=== PATIENT | female | born 1975 | race Hispanic/Latino ===

== ENCOUNTER 2022-03-15 21:10 | Emergency (ER) | payer BC ==
[~2022-03-15] VITALS: Ht 160 cm; Wt 142.9 kg
[~2022-03-15 21:10] MED LIST: LEVOTHYROXINE50 MCG PO; PANTOPRAZOLE SO40 MG PO; Z.0.CIPRO500 MG; Z.0.TORADOL10 MG; prestique
[2022-03-15] MEDS ORDERED: ONDANSETRON HCL INJ 2MG/ML 2ML 2 MG/ML VIAL IV STA (21:36)
[2022-03-15] MEDS ORDERED: Morphine 4mg INJECTION 4 MG/ML INJ IV ONE (21:45)
[2022-03-15 21:57] LABS: BASOPHILS % 0.3 % (0.0-1.0); EOSINOPHILS # (AUTO) 0.3 (0.0-0.4); EOSINOPHILS % 3.6 % (0.0-6.0); HEMATOCRIT 40.4 % (34.2-44.1); HEMOGLOBIN 13.5 g/dL (12.0-16.0); LYMPHOCYTES # (AUTO) 2.7 (1.0-3.2); LYMPHOCYTES % 31.4 % (18.0-39.1); MEAN CORPUSCULAR HEMOGLOBIN 30.7 pg (28-32); MEAN CORPUSCULAR HGB CONC 33.4 g/dL (31-35); MEAN CORPUSCULAR VOLUME 91.8 fL (81-99); MONOCYTES # (AUTO) 0.5 (0.2-0.8); MONOCYTES % 5.7 % (4.4-11.3); NEUTROPHILS # (AUTO) 5.1 (2.1-6.9); NEUTROPHILS % 58.8 % (38.7-80.0); PLATELET COUNT 355 x10e3/uL (140-360); RED CELL DISTRIBUTION WIDTH 12.8 % (11.7-14.4)
[2022-03-15 22:20] LABS: ALBUMIN 3.5 g/dL (3.5-5.0); ALBUMIN/GLOBULIN RATIO 0.9 (0.8-2.0); ANION GAP 15.9 mmol/L (8-16); CALCIUM 9.4 mg/dL (8.4-10.2); CREATININE, SERUM 0.73 mg/dL (0.57-1.11); POTASSIUM 3.9 mmol/L (3.5-5.1)
[2022-03-15 22:34] LABS: CLARITY,URINE SL CLOUDY (CLEAR); COLOR,URINE YELLOW (YELLOW); KETONES,URINE NEGATIVE (NEGATIVE); LEUKOCYTE ESTERASE ,URINE NEGATIVE (NEGATIVE); NITRITE,URINE NEGATIVE (NEGATIVE); PROTEIN,URINE DIPSTICK 1+ (NEGATIVE); URINE UROBILINOGEN 0.2 mg/dL (0.2 - 1)
[2022-03-15 22:39] LABS: BACTERIA,URINE FEW /HPF; EPITHELIAL CELLS,URINE MANY /LPF; RBC,URINE 0-5 /HPF (0-5); YEAST,URINE RARE
[2022-03-15] MEDS ORDERED: IOPAMIDOL 370 MG/ML 100 ML INFUS..BTL INJ ONE (22:48)
[2022-03-15] MEDS ORDERED: ULTRAM 50MG50 MG PO (23:47)
[2022-03-15] MEDS ORDERED: ONDANSETRON ODT4 MG PO (23:47)
[2022-03-16 00:25] VITALS: BP 130/65
[2022-03-17] MEDS ORDERED: IOPAMIDOL 370 MG/ML 100 ML INFUS..BTL INJ ONE (05:32)
== END 2022-03-16 00:01 | disposition home or self-care (01) ==
LOC: ER 21:20
DX: R10.10 Upper abdominal pain, unspecified (principal); K43.9 Ventral hernia without obstruction or gangrene; E11.65 Type 2 diabetes mellitus with hyperglycemia; R11.0 Nausea; E03.9 Hypothyroidism, unspecified; F32.A Depression, unspecified
CPT/HCPCS: 36415; 74177; 80053; 81001; 83690; 85025; 99284; J2270; J2405; Q9967

== ENCOUNTER → 2022-04-12 | Outpatient (CLI) | payer BC ==
[~2022-04-12] MED LIST changes: +DIATRIZOATE MEGL/DIATRIZOA SOD 120 ML BTL PO ONE; +DIATRIZOATE MEGL/DIATRIZOA SOD 30 ML BTL PO ONE; +ONDANSETRON ODT4 MG PO; +ULTRAM 50MG50 MG PO
== END ==
LOC: DX 11:13
PROVIDERS: ATTEND Specialist
DX: K63.89 Other specified diseases of intestine (principal)
CPT/HCPCS: 74270; Q9963 ×2

== ENCOUNTER 2022-05-22 07:05 | Inpatient (IN) | payer BC ==
[2022-05-20 10:22] LABS: BASOPHILS % 0.4 % (0.0-1.0); EOSINOPHILS # (AUTO) 0.2 (0.0-0.4); HEMATOCRIT 41.9 % (34.2-44.1); LYMPHOCYTES # (AUTO) 2.1 (1.0-3.2); LYMPHOCYTES % 39.3 % (18.0-39.1); MEAN CORPUSCULAR HEMOGLOBIN 30.3 pg (28-32); MEAN CORPUSCULAR HGB CONC 33.4 g/dL (31-35); MEAN CORPUSCULAR VOLUME 90.7 fL (81-99); MONOCYTES # (AUTO) 0.3 (0.2-0.8); MONOCYTES % 6.2 % (4.4-11.3); NEUTROPHILS # (AUTO) 2.7 (2.1-6.9); NEUTROPHILS % 50.9 % (38.7-80.0); PLATELET COUNT 334 x10e3/uL (140-360); RED BLOOD COUNT 4.62 x10e6/uL (3.6-5.1); RED CELL DISTRIBUTION WIDTH 13.2 % (11.7-14.4)
[2022-05-20 10:31] LABS: ALBUMIN 3.9 g/dL (3.5-5.0); ANION GAP 15.2 mmol/L (8-16); CREATININE, SERUM 0.64 mg/dL (0.57-1.11); POTASSIUM 4.2 mmol/L (3.5-5.1)
[2022-05-22] VITALS (12 sets, daily range): BP systolic 111–151; BP diastolic 68–87
[~2022-05-22] VITALS: Ht 160 cm; Wt 142.9 kg
[~2022-05-22 07:05] MED LIST changes: -DIATRIZOATE MEGL/DIATRIZOA SOD 120 ML BTL PO ONE; -DIATRIZOATE MEGL/DIATRIZOA SOD 30 ML BTL PO ONE; +GLIPIZIDE5 MG PO; +METFORMIN HCL1000 MG PO
[2022-05-22] MEDS ORDERED: ONDANSETRON HCL INJ 2MG/ML 2ML 2 MG/ML VIAL ONE ×2 (08:22→12:19)
[2022-05-22] MEDS ORDERED: MINERAL OIL STERILE 10ML VIAL ONE (08:29)
[2022-05-22] MEDS ORDERED: SUGAMMADEX SODIUM 200 MG/2 ML VIAL IV ONE (08:35)
[2022-05-22] MEDS ORDERED: HYDROMORPHONE 1MG/1ML INJ ONE (08:35)
[2022-05-22] MEDS ORDERED: ACETAMINOPHEN 1000 MG/100 ML 100 ML IV ONE (08:35)
[2022-05-22] MEDS ORDERED: ROPIVACAINE 246.25 MG, EPINEPHRINE HCL 1:1000 1ML 0.5 MG, CLONIDINE HCL 0.08 MG, KETORO... IV ONE ×5 (09:15)
[2022-05-22] MEDS ORDERED: ROPIVACAINE 246.25 MG, EPINEPHRINE HCL 1:1000 1ML 0.5 MG, CLONIDINE HCL 0.08 MG, KETORO... INJ ONE ×5 (09:30)
[2022-05-22] MEDS ORDERED: ALBUMIN 5% 250ML 250 ML IV ONE (12:00)
[2022-05-22] MEDS ORDERED: SEVOFLURANE INHAL SOLN 250 ML PEN BTL ONE (12:19)
[2022-05-22] MEDS ORDERED: METOPROLOL TARTRATE INJ 1 MG/ML VIAL ONE (12:19)
[2022-05-22] MEDS ORDERED: LIDOCAINE HCL 2% LOCAL INJ 5 ML SDV VIAL INJ ONE (12:19)
[2022-05-22] MEDS ORDERED: CEFTRIAXONE 1 GM VIAL ONE (12:19)
[2022-05-22] MEDS ORDERED: PHENYLEPHRINE HCL 1% 10 MG/ML VIAL ONE (12:19)
[2022-05-22] MEDS ORDERED: ROCURONIUM BROMIDE 10 MG/ML 5ML VIAL IV ONE (12:19)
[2022-05-22] MEDS ORDERED: DEXAMETHASONE SOD PHOS INJ 4 MG/ML SDV ONE (12:19)
[2022-05-22] MEDS ORDERED: POVIDONE IODINE 0.05% 0.05 % ML PO ONE (12:19)
[2022-05-22] MEDS ORDERED: PROPOFOL IV EMULSION 10 MG/ML 20 ML VIAL ONE (12:19)
[2022-05-22] MEDS ORDERED: METOCLOPRAMIDE HCL 10 MG/2ML VIAL ONE (12:19)
[2022-05-22] MEDS ORDERED: FENTANYL CITRATE/PF 100MCG/2 ML INJ ONE (13:07)
[2022-05-22] MEDS ORDERED: MIDAZOLAM HCL 2 MG/2 ML VIAL ONE (13:07)
[2022-05-22] MEDS ORDERED: ACETAMINOPHEN 1000 MG/100 ML IV PRN (14:15)
[2022-05-22] MEDS ORDERED: NALOXONE HCL INJ 0.4 MG/ML AMP IV PRN (14:15)
[2022-05-22] MEDS: SODIUM CHLORIDE 0.9% 250ML IRRIG IR SCH ×3 (14:15→22:26)
[2022-05-22] MEDS: HYDROMORPHONE 0.2MG/ML-SOD CHL 30ML PCA SYRINGE IV PRN (14:40)
[2022-05-22] MEDS ORDERED: INSULIN REGULAR, HUMAN 100 UNIT/1 ML ONE (15:09)
[2022-05-22] MEDS ORDERED: PROMETHAZINE HCL (IM) 25 MG/ML VIAL IM ONE (15:17)
[2022-05-22] MEDS: METRONIDAZOLE 500MG/NS 100ML 100 ML IV SCH ×2 (16:09→22:00)
[2022-05-22] MEDS: SODIUM CHLORIDE 0.9% 1000ML 1,000 ML IV SCH (16:09)
[2022-05-22] MEDS: INSULIN REGULAR, HUMAN 100 UNIT/1 ML SQ SCH (18:11)
[2022-05-22] MEDS ORDERED: Morphine 2mg Syringe 2 MG/ML SYR IV ONE (20:00)
[2022-05-22] MEDS ORDERED: Morphine 2mg Syringe 2 MG/ML SYR IM ONE (20:00)
[2022-05-23] VITALS (18 sets, daily range): BP systolic 99–130; BP diastolic 57–88
[2022-05-23] MEDS: INSULIN REGULAR, HUMAN 100 UNIT/1 ML SQ SCH ×4 (00:41→17:52)
[2022-05-23] MEDS: SODIUM CHLORIDE 0.9% 1000ML 1,000 ML IV SCH ×3 (00:46→10:55)
[2022-05-23] MEDS: SODIUM CHLORIDE 0.9% 250ML IRRIG IR SCH ×6 (03:39→22:14)
[2022-05-23] MEDS: METRONIDAZOLE 500MG/NS 100ML 100 ML IV SCH ×4 (03:52→21:20)
[2022-05-23] MEDS: HYDROMORPHONE 0.2MG/ML-SOD CHL 30ML PCA SYRINGE IV PRN ×2 (06:44→17:29)
[2022-05-23] MEDS: ONDANSETRON HCL INJ 2MG/ML 2ML 2 MG/ML VIAL IV PRN ×3 (07:44→20:13)
[2022-05-23 09:51] LABS: BASOPHILS % 0.2 % (0.0-1.0); HEMATOCRIT 29.6 % (34.2-44.1); HEMOGLOBIN 9.1 g/dL (12.0-16.0); LYMPHOCYTES # (AUTO) 1.1 (1.0-3.2); LYMPHOCYTES % 9.5 % (18.0-39.1); MEAN CORPUSCULAR HEMOGLOBIN 29.9 pg (28-32); MEAN CORPUSCULAR HGB CONC 30.7 g/dL (31-35); MEAN CORPUSCULAR VOLUME 97.4 fL (81-99); MONOCYTES # (AUTO) 0.7 (0.2-0.8); MONOCYTES % 6.3 % (4.4-11.3); NEUTROPHILS # (AUTO) 9.6 (2.1-6.9); NEUTROPHILS % 83.6 % (38.7-80.0); PLATELET COUNT 259 x10e3/uL (140-360); RED BLOOD COUNT 3.04 x10e6/uL (3.6-5.1); RED CELL DISTRIBUTION WIDTH 13.3 % (11.7-14.4)
[2022-05-23 10:16] LABS: ALBUMIN 2.5 g/dL (3.5-5.0); ANION GAP 11.4 mmol/L (8-16); CREATININE, SERUM 0.7 mg/dL (0.57-1.11); POTASSIUM 3.4 mmol/L (3.5-5.1)
[2022-05-23 10:23] LABS: CALCIUM 6.1 mg/dL (8.4-10.2)
[2022-05-23 11:16] LABS: BAND NEUTROPHILS % (MANUAL) 8 %; LYMPHOCYTES % (MANUAL) 8 % (19-48); MONOCYTES % (MANUAL) 4 % (3.4-9.0); NEUTROPHILS % (MANUAL) 79 % (40-74); PLATELET ESTIMATE ADEQUATE; PLATELET MORPHOLOGY COMMENT NORMAL; RBC MORPHOLOGY COMMENT NORMAL
[2022-05-23] MEDS: KCL 20MEQ/.9 SOD CHL 1,000 ML IV SCH ×2 (12:09→18:17)
[2022-05-23] MEDS: ENOXAPARIN SOD INJ 60 MG/0.6 ML SYR SC SCH (16:35)
[2022-05-24] VITALS (19 sets, daily range): BP systolic 99–137; BP diastolic 62–90
[2022-05-24] MEDS: KCL 20MEQ/.9 SOD CHL 1,000 ML IV SCH ×3 (00:20→16:21)
[2022-05-24] MEDS: SODIUM CHLORIDE 0.9% 250ML IRRIG IR SCH ×2 (00:20→05:12)
[2022-05-24] MEDS: HYDROMORPHONE 0.2MG/ML-SOD CHL 30ML PCA SYRINGE IV PRN ×2 (03:13→14:01)
[2022-05-24] MEDS: METRONIDAZOLE 500MG/NS 100ML 100 ML IV SCH ×4 (03:21→23:16)
[2022-05-24] MEDS: INSULIN REGULAR, HUMAN 100 UNIT/1 ML SQ SCH ×5 (05:12→23:23)
[2022-05-24 09:10] LABS: BASOPHILS % 0.1 % (0.0-1.0); HEMATOCRIT 30.3 % (34.2-44.1); LYMPHOCYTES # (AUTO) 1.4 (1.0-3.2); LYMPHOCYTES % 11.9 % (18.0-39.1); MEAN CORPUSCULAR HEMOGLOBIN 29.8 pg (28-32); MEAN CORPUSCULAR HGB CONC 29.7 g/dL (31-35); MEAN CORPUSCULAR VOLUME 100.3 fL (81-99); MONOCYTES # (AUTO) 0.7 (0.2-0.8); MONOCYTES % 6.5 % (4.4-11.3); NEUTROPHILS # (AUTO) 9.1 (2.1-6.9); PLATELET COUNT 283 x10e3/uL (140-360); RED BLOOD COUNT 3.02 x10e6/uL (3.6-5.1); RED CELL DISTRIBUTION WIDTH 14.1 % (11.7-14.4)
[2022-05-24 09:27] LABS: ALBUMIN 2.4 g/dL (3.5-5.0); ALBUMIN/GLOBULIN RATIO 0.6 (0.8-2.0); ANION GAP 11.3 mmol/L (8-16); CALCIUM 7.1 mg/dL (8.4-10.2); CREATININE, SERUM 0.73 mg/dL (0.57-1.11); POTASSIUM 4.3 mmol/L (3.5-5.1)
[2022-05-24] MEDS ORDERED: HYDROMORPHONE 0.2MG/ML-SOD CHL 30ML PCA SYRINGE IV PRN (16:15)
[2022-05-24] MEDS: ENOXAPARIN SOD INJ 60 MG/0.6 ML SYR SC SCH (17:10)
[2022-05-25] VITALS (8 sets, daily range): BP systolic 101–133; BP diastolic 66–82
[2022-05-25] MEDS: KCL 20MEQ/.9 SOD CHL 1,000 ML IV SCH ×3 (00:35→11:41)
[2022-05-25] MEDS: METRONIDAZOLE 500MG/NS 100ML 100 ML IV SCH ×4 (04:57→21:26)
[2022-05-25] MEDS: INSULIN REGULAR, HUMAN 100 UNIT/1 ML SQ SCH ×4 (06:00→23:59)
[2022-05-25 09:58] LABS: BASOPHILS % 0.2 % (0.0-1.0); HEMATOCRIT 27.3 % (34.2-44.1); HEMOGLOBIN 8.1 g/dL (12.0-16.0); LYMPHOCYTES # (AUTO) 1.4 (1.0-3.2); LYMPHOCYTES % 13.8 % (18.0-39.1); MEAN CORPUSCULAR HEMOGLOBIN 30.2 pg (28-32); MEAN CORPUSCULAR HGB CONC 29.7 g/dL (31-35); MEAN CORPUSCULAR VOLUME 101.9 fL (81-99); MONOCYTES # (AUTO) 0.6 (0.2-0.8); MONOCYTES % 6.2 % (4.4-11.3); NEUTROPHILS # (AUTO) 7.8 (2.1-6.9); NEUTROPHILS % 77.7 % (38.7-80.0); PLATELET COUNT 296 x10e3/uL (140-360); RED BLOOD COUNT 2.68 x10e6/uL (3.6-5.1); RED CELL DISTRIBUTION WIDTH 14.1 % (11.7-14.4)
[2022-05-25 10:22] LABS: ALBUMIN 2.3 g/dL (3.5-5.0); ALBUMIN/GLOBULIN RATIO 0.6 (0.8-2.0); ANION GAP 13.9 mmol/L (8-16); CALCIUM 7.2 mg/dL (8.4-10.2); CREATININE, SERUM 0.68 mg/dL (0.57-1.11); POTASSIUM 3.9 mmol/L (3.5-5.1)
[2022-05-25] MEDS: ENOXAPARIN SOD INJ 60 MG/0.6 ML SYR SC SCH (16:56)
[2022-05-25] MEDS: SODIUM CHLORIDE 0.9% 250ML IRRIG IR SCH ×2 (19:41→23:59)
[2022-05-25] MEDS: IPRATROPIUM BROMIDE 0.02% 2.5 ML NEB NEB SCH (20:15)
[2022-05-26] VITALS (7 sets, daily range): BP systolic 123–144; BP diastolic 62–80
[2022-05-26] MEDS: IPRATROPIUM BROMIDE 0.02% 2.5 ML NEB NEB SCH ×4 (02:15→19:00)
[2022-05-26] MEDS: KCL 20MEQ/.9 SOD CHL 1,000 ML IV SCH (03:22)
[2022-05-26] MEDS: METRONIDAZOLE 500MG/NS 100ML 100 ML IV SCH ×4 (03:47→21:24)
[2022-05-26] MEDS: INSULIN REGULAR, HUMAN 100 UNIT/1 ML SQ SCH ×3 (05:00→17:10)
[2022-05-26] MEDS: ONDANSETRON HCL INJ 2MG/ML 2ML 2 MG/ML VIAL IV PRN ×2 (15:06→21:24)
[2022-05-26] MEDS ORDERED: HYDROCODONE/APAP 7.5MG-325MG 1 EA TAB PO PRN (16:15)
[2022-05-26] MEDS: ENOXAPARIN SOD INJ 60 MG/0.6 ML SYR SC SCH (17:30)
[2022-05-26] MEDS: HYDROMORPHONE 1MG/1ML INJ IV PRN (21:27)
[2022-05-27] VITALS (8 sets, daily range): BP systolic 112–143; BP diastolic 69–89
[2022-05-27] MEDS: IPRATROPIUM BROMIDE 0.02% 2.5 ML NEB NEB SCH ×4 (01:00→19:00)
[2022-05-27] MEDS: HYDROMORPHONE 1MG/1ML INJ IV PRN ×6 (01:52→21:04)
[2022-05-27] MEDS: ONDANSETRON HCL INJ 2MG/ML 2ML 2 MG/ML VIAL IV PRN ×3 (02:50→17:19)
[2022-05-27] MEDS: KCL 20MEQ/.9 SOD CHL 1,000 ML IV SCH ×2 (04:09→16:55)
[2022-05-27] MEDS: METRONIDAZOLE 500MG/NS 100ML 100 ML IV SCH ×4 (04:09→21:03)
[2022-05-27 04:42] LABS: BASOPHILS % 0.1 % (0.0-1.0); EOSINOPHILS # (AUTO) 0.1 (0.0-0.4); EOSINOPHILS % 1.1 % (0.0-6.0); HEMATOCRIT 26.3 % (34.2-44.1); LYMPHOCYTES # (AUTO) 1.6 (1.0-3.2); LYMPHOCYTES % 22.1 % (18.0-39.1); MEAN CORPUSCULAR HEMOGLOBIN 29.9 pg (28-32); MEAN CORPUSCULAR HGB CONC 30.4 g/dL (31-35); MONOCYTES # (AUTO) 0.7 (0.2-0.8); MONOCYTES % 9.3 % (4.4-11.3); NEUTROPHILS # (AUTO) 4.5 (2.1-6.9); NEUTROPHILS % 62.8 % (38.7-80.0); PLATELET COUNT 325 x10e3/uL (140-360); RED BLOOD COUNT 2.68 x10e6/uL (3.6-5.1); RED CELL DISTRIBUTION WIDTH 13.5 % (11.7-14.4)
[2022-05-27 04:54] LABS: MEAN CORPUSCULAR VOLUME 98.1 fL (81-99)
[2022-05-27 05:00] LABS: ALBUMIN/GLOBULIN RATIO 0.6 (0.8-2.0); ANION GAP 12.6 mmol/L (8-16); CREATININE, SERUM 0.62 mg/dL (0.57-1.11); POTASSIUM 3.6 mmol/L (3.5-5.1)
[2022-05-27 05:03] LABS: CALCIUM 6.9 mg/dL (8.4-10.2)
[2022-05-27] MEDS: INSULIN REGULAR, HUMAN 100 UNIT/1 ML SQ SCH ×4 (06:00→18:34)
[2022-05-27] MEDS ORDERED: DEXTROSE 50% SYRINGE 50 ML IV ONE (07:10)
[2022-05-27] MEDS ORDERED: INSULIN REGULAR, HUMAN 100 UNIT/1 ML SQ STA (08:02)
[2022-05-27] MEDS ORDERED: DEXTROSE 50% SYRINGE 50 ML IV PRN (08:15)
[2022-05-27 09:21] LABS: EOSINOPHILS % (MANUAL) 1 % (0-7); LYMPHOCYTES % (MANUAL) 23 % (19-48); METAMYELOCYTES % (MANUAL) 3 % (0-0); MONOCYTES % (MANUAL) 11 % (3.4-9.0); MYELOCYTES % (MANUAL) 4 % (0-0); NEUTROPHILS % (MANUAL) 57 % (40-74); NUCLEATED RED BLOOD CELLS 1; PLATELET ESTIMATE ADEQUATE; PLATELET MORPHOLOGY COMMENT NORMAL; POLYCHROMASIA FEW; RBC MORPHOLOGY COMMENT NORMAL
[2022-05-27] MEDS ORDERED: CALCIUM GLUC 1 G/50 ML NACL 50 ML IV ONE (11:00)
[2022-05-27 16:20] LABS: ANION GAP 15.5 mmol/L (8-16); BLOOD UREA NITROGEN < 5 mg/dL (7-26); CALCIUM 7.6 mg/dL (8.4-10.2); CARBON DIOXIDE 23 mmol/L (22-29); CHLORIDE 104 mmol/L (98-107); CREATININE, SERUM 0.64 mg/dL (0.57-1.11); GLUCOSE 173 mg/dL (74-118); POTASSIUM 3.5 mmol/L (3.5-5.1); SODIUM 139 mmol/L (136-145)
[2022-05-27 16:22] LABS: BUN/CREATININE RATIO 8 (6-25)
[2022-05-27] MEDS: ENOXAPARIN SOD INJ 60 MG/0.6 ML SYR SC SCH (16:57)
[2022-05-28] VITALS (8 sets, daily range): BP systolic 114–181; BP diastolic 56–97
[2022-05-28] MEDS: ONDANSETRON HCL INJ 2MG/ML 2ML 2 MG/ML VIAL IV PRN ×3 (00:21→13:08)
[2022-05-28] MEDS: HYDROMORPHONE 1MG/1ML INJ IV PRN ×5 (00:22→16:56)
[2022-05-28] MEDS: INSULIN REGULAR, HUMAN 100 UNIT/1 ML SQ SCH ×4 (00:34→17:27)
[2022-05-28] MEDS: IPRATROPIUM BROMIDE 0.02% 2.5 ML NEB NEB SCH ×4 (01:00→13:00)
[2022-05-28] MEDS: METRONIDAZOLE 500MG/NS 100ML 100 ML IV SCH ×3 (03:38→15:50)
[2022-05-28 06:04] LABS: BASOPHILS % 0.4 % (0.0-1.0); EOSINOPHILS # (AUTO) 0.1 (0.0-0.4); HEMATOCRIT 24.7 % (34.2-44.1); HEMOGLOBIN 8.2 g/dL (12.0-16.0); LYMPHOCYTES # (AUTO) 1.8 (1.0-3.2); LYMPHOCYTES % 22.4 % (18.0-39.1); MEAN CORPUSCULAR HEMOGLOBIN 30.5 pg (28-32); MEAN CORPUSCULAR HGB CONC 33.2 g/dL (31-35); MEAN CORPUSCULAR VOLUME 91.8 fL (81-99); MONOCYTES # (AUTO) 0.7 (0.2-0.8); MONOCYTES % 9.1 % (4.4-11.3); NEUTROPHILS % 61.4 % (38.7-80.0); PLATELET COUNT 351 x10e3/uL (140-360); RED BLOOD COUNT 2.69 x10e6/uL (3.6-5.1); RED CELL DISTRIBUTION WIDTH 13.7 % (11.7-14.4)
[2022-05-28 06:32] LABS: ANION GAP 12.3 mmol/L (8-16); BLOOD UREA NITROGEN < 5 mg/dL (7-26); BUN/CREATININE RATIO 8 (6-25); CALCIUM 7.3 mg/dL (8.4-10.2); CARBON DIOXIDE 26 mmol/L (22-29); CHLORIDE 104 mmol/L (98-107); CREATININE, SERUM 0.62 mg/dL (0.57-1.11); GLUCOSE 184 mg/dL (74-118); POTASSIUM 3.3 mmol/L (3.5-5.1); SODIUM 139 mmol/L (136-145)
[2022-05-28] MEDS: KCL 20MEQ/.9 SOD CHL 1,000 ML IV SCH (10:08)
[2022-05-28] MEDS ORDERED: POTASSIUM CHLORIDE 10MEQ EA PO NR (10:30)
[2022-05-28 10:38] LABS: BAND NEUTROPHILS % (MANUAL) 2 %; LYMPHOCYTES % (MANUAL) 12 % (19-48); METAMYELOCYTES % (MANUAL) 3 % (0-0); MONOCYTES % (MANUAL) 13 % (3.4-9.0); MYELOCYTES % (MANUAL) 2 % (0-0); NEUTROPHILS % (MANUAL) 68 % (40-74)
[2022-05-28 10:39] LABS: PLATELET ESTIMATE ADEQUATE; PLATELET MORPHOLOGY COMMENT NORMAL; RBC MORPHOLOGY COMMENT NORMAL
[2022-05-28] MEDS: ENOXAPARIN SOD INJ 60 MG/0.6 ML SYR SC SCH (16:56)
== END 2022-05-28 18:20 | disposition home or self-care (01) | DRG 345 ==
LOC: OR 07:05 → PACU V 14:09 → ICU 15:32 → MED/SURG 05-24 21:27
PROVIDERS: ADMIT Surgery; ATTEND Surgery
PROC: 0WQF0ZZ Repair Abdominal Wall, Open Approach (ICD-10-PCS; 2022-05-22)
PROC: 02HV33Z Insertion of Infusion Device into Superior Vena Cava, Percutaneous Approach (ICD-10-PCS; principal; 2022-05-22 08:46)
PROC: 0DSL0ZZ Reposition Transverse Colon, Open Approach (ICD-10-PCS; 2022-05-22 08:46)
DX: Z43.3 Encounter for attention to colostomy (principal); E87.20 Acidosis, unspecified; K63.2 Fistula of intestine; Z68.43 Body mass index [BMI] 50.0-59.9, adult; K43.9 Ventral hernia without obstruction or gangrene; E11.9 Type 2 diabetes mellitus without complications; E66.01 Morbid (severe) obesity due to excess calories; I10 Essential (primary) hypertension; E87.6 Hypokalemia; D72.829 Elevated white blood cell count, unspecified; Z88.1 Allergy status to other antibiotic agents
CPT/HCPCS: 36415; 36569; 71045; 80048; 80053; 82310; 82948; 85025; 88302; 88305; 88342; 93005; 94640; 94799; 96360; 96361; 99251; J0171; J0694; J0696; J1100; J1170; J1650; J1817; J1885; J2001; J2250; J2270; J2370; J2405; J2543; J2550; J2765; J2795; J3010; J7030; P9045

== ENCOUNTER 2022-07-16 15:36 | Inpatient (IN) | payer BC ==
[~2022-07-16] VITALS: Ht 162.6 cm; Wt 142.9 kg
[2022-07-16] MEDS ORDERED: ONDANSETRON HCL INJ 2MG/ML 2ML 2 MG/ML VIAL IV STA ×2 (16:14→17:48)
[2022-07-16] MEDS ORDERED: Morphine 4mg INJECTION 4 MG/ML INJ IV STA (16:14)
[2022-07-16] MEDS ORDERED: SODIUM CHLORIDE 0.9% 1000ML 1,000 ML IV STA (16:18)
[2022-07-16 16:53] LABS: INR 0.85; PROTHROMBIN TIME 11.8 seconds (11.9-14.5)
[2022-07-16 16:54] LABS: PARTIAL THROMBOPLASTIN TIME 26.1 seconds (23.8-35.5)
[2022-07-16 17:10] LABS: HEMATOCRIT 39.8 % (34.2-44.1); MEAN CORPUSCULAR HGB CONC 32.7 g/dL (31-35); MEAN CORPUSCULAR VOLUME 88.6 fL (81-99); NEUTROPHILS % 59.6 % (38.7-80.0); PLATELET COUNT 437 x10e3/uL (140-360); RED BLOOD COUNT 4.49 x10e6/uL (3.6-5.1); RED CELL DISTRIBUTION WIDTH 13.8 % (11.7-14.4)
[2022-07-16 17:11] LABS: BASOPHILS % 0.4 % (0.0-1.0); EOSINOPHILS % 2.5 % (0.0-6.0); LYMPHOCYTES % 30.8 % (18.0-39.1); MONOCYTES % 6.3 % (4.4-11.3)
[2022-07-16] MEDS ORDERED: HYDROMORPHONE 1MG/1ML INJ IV STA (17:48)
[2022-07-16 18:00] LABS: CLARITY,URINE CLEAR (CLEAR); COLOR,URINE YELLOW (YELLOW); KETONES,URINE NEGATIVE (NEGATIVE); LEUKOCYTE ESTERASE ,URINE NEGATIVE (NEGATIVE); NITRITE,URINE NEGATIVE (NEGATIVE); PROTEIN,URINE DIPSTICK 2+ (NEGATIVE); URINE UROBILINOGEN 0.2 mg/dL (0.2 - 1)
[2022-07-16 18:03] LABS: ALANINE AMINOTRANSFERASE 42 IU/L (0-55); ALBUMIN 3.2 g/dL (3.5-5.0); ALBUMIN/GLOBULIN RATIO 0.7 (0.8-2.0); ALKALINE PHOSPHATASE 67 IU/L (40-150); ANION GAP 12.6 mmol/L (8-16); BLOOD UREA NITROGEN 13 mg/dL (7-26); BUN/CREATININE RATIO 21 (6-25); CALCIUM 8.4 mg/dL (8.4-10.2); CARBON DIOXIDE 22 mmol/L (22-29); CHLORIDE 107 mmol/L (98-107); CREATINE KINASE 30 IU/L (29-168); CREATININE, SERUM 0.61 mg/dL (0.57-1.11); GLUCOSE 113 mg/dL (74-118); LIPASE 856 U/L (8-78); MAGNESIUM 1.5 MG/DL (1.3-2.1); POTASSIUM 4.6 mmol/L (3.5-5.1); SODIUM 137 mmol/L (136-145)
[2022-07-16 18:05] LABS: BACTERIA,URINE FEW /HPF; EPITHELIAL CELLS,URINE MANY /LPF; MUCUS,URINE FEW (RARE); RBC,URINE 0-5 /HPF (0-5); WBC,URINE (MAN) 0-5 /HPF (0-5); YEAST,URINE FEW
[2022-07-16] MEDS ORDERED: IOPAMIDOL 370 MG/ML 100 ML INFUS..BTL INJ ONE (18:48)
[2022-07-16] MEDS ORDERED: FENTANYL CITRATE/PF 100MCG/2 ML INJ IV ONE (19:37)
[2022-07-16] MEDS ORDERED: DEXTROSE 50% SYRINGE 50 ML IV PRN (19:45)
[2022-07-16] MEDS ORDERED: ONDANSETRON HCL INJ 2MG/ML 2ML 2 MG/ML VIAL ONE (19:50)
[2022-07-16] MEDS ORDERED: FENTANYL CITRATE/PF 100MCG/2 ML INJ ONE (19:50)
[2022-07-16] MEDS: SODIUM CHLORIDE 0.9% 1000ML 1,000 ML IV SCH ×2 (20:23→22:14)
[2022-07-16] MEDS: ONDANSETRON HCL INJ 2MG/ML 2ML 2 MG/ML VIAL IV PRN (20:24)
[2022-07-16] MEDS: Morphine 4mg INJECTION 4 MG/ML INJ IV PRN (20:24)
[2022-07-16 22:00] VITALS: BP 125/73
[2022-07-16 22:29] VITALS: BP 125/73
[2022-07-16 22:30] VITALS: BP 125/73
[2022-07-17] VITALS (8 sets, daily range): BP systolic 110–148; BP diastolic 58–85
[2022-07-17] MEDS: ONDANSETRON HCL INJ 2MG/ML 2ML 2 MG/ML VIAL IV PRN ×6 (00:16→22:18)
[2022-07-17] MEDS: Morphine 4mg INJECTION 4 MG/ML INJ IV PRN ×6 (00:16→22:19)
[2022-07-17] MEDS: SODIUM CHLORIDE 0.9% 1000ML 1,000 ML IV SCH ×2 (04:23→14:18)
[2022-07-17 05:52] LABS: BASOPHILS % 0.3 % (0.0-1.0); EOSINOPHILS # (AUTO) 0.1 (0.0-0.4); EOSINOPHILS % 1.9 % (0.0-6.0); HEMOGLOBIN 11.1 g/dL (12.0-16.0); LYMPHOCYTES # (AUTO) 2.3 (1.0-3.2); LYMPHOCYTES % 30.4 % (18.0-39.1); MEAN CORPUSCULAR HEMOGLOBIN 28.5 pg (28-32); MEAN CORPUSCULAR HGB CONC 30.8 g/dL (31-35); MEAN CORPUSCULAR VOLUME 92.3 fL (81-99); MONOCYTES # (AUTO) 0.4 (0.2-0.8); MONOCYTES % 5.4 % (4.4-11.3); NEUTROPHILS # (AUTO) 4.6 (2.1-6.9); NEUTROPHILS % 61.7 % (38.7-80.0); PLATELET COUNT 375 x10e3/uL (140-360); RED CELL DISTRIBUTION WIDTH 13.2 % (11.7-14.4)
[2022-07-17 06:18] LABS: ANION GAP 12.8 mmol/L (8-16); CALCIUM 8.4 mg/dL (8.4-10.2); CREATININE, SERUM 0.6 mg/dL (0.57-1.11); POTASSIUM 3.8 mmol/L (3.5-5.1)
[2022-07-17] MEDS: CEFTRIAXONE 2 GM in SODIUM CHLORIDE 0.9% 100 ML IV SCH (19:35)
[2022-07-18] VITALS (7 sets, daily range): BP systolic 116–155; BP diastolic 52–93
[2022-07-18] MEDS: SODIUM CHLORIDE 0.9% 1000ML 1,000 ML IV SCH ×2 (01:36→22:01)
[2022-07-18] MEDS: Morphine 4mg INJECTION 4 MG/ML INJ IV PRN ×5 (03:40→22:34)
[2022-07-18] MEDS: ONDANSETRON HCL INJ 2MG/ML 2ML 2 MG/ML VIAL IV PRN ×5 (03:41→22:34)
[2022-07-18] MEDS: CEFTRIAXONE 2 GM in SODIUM CHLORIDE 0.9% 100 ML IV SCH (08:33)
[2022-07-19 01:43] VITALS: BP 130/78
[2022-07-19] MEDS: ONDANSETRON HCL INJ 2MG/ML 2ML 2 MG/ML VIAL IV PRN ×4 (03:50→17:20)
[2022-07-19] MEDS: Morphine 4mg INJECTION 4 MG/ML INJ IV PRN ×4 (03:51→17:20)
[2022-07-19 05:28] VITALS: BP 112/51
[2022-07-19 08:17] VITALS: BP 160/90
[2022-07-19] MEDS: SODIUM CHLORIDE 0.9% 1000ML 1,000 ML IV SCH ×2 (08:19→17:24)
[2022-07-19] MEDS: CEFTRIAXONE 2 GM in SODIUM CHLORIDE 0.9% 100 ML IV SCH (08:19)
[2022-07-19 08:57] VITALS: BP 160/90
[2022-07-19 12:00] VITALS: BP 139/67
[2022-07-19 16:30] VITALS: BP 150/91
== END 2022-07-19 18:05 | disposition home or self-care (01) | DRG 394 ==
LOC: ER 15:47 → ERHOLD 19:45 → MED/SURG3 21:51 → OBSVTOIN 07-18 09:12
PROVIDERS: ADMIT Surgery; ATTEND Surgery
DX: K43.3 Parastomal hernia with obstruction, without gangrene (principal); Z68.43 Body mass index [BMI] 50.0-59.9, adult; R11.2 Nausea with vomiting, unspecified; E66.01 Morbid (severe) obesity due to excess calories; Z90.49 Acquired absence of other specified parts of digestive tract; T85.848A Pain due to other internal prosthetic devices, implants and grafts, initial encounter
CPT/HCPCS: 0223U; 36415; 74177; 80048; 80053; 81001; 82550; 82553; 82948; 83690; 83735; 84484; 84702; 85025; 85610; 85730; 87086; 99284; G0378; J0696; J1170; J2270; J2405; J3010; J7030; J7050; Q9967

== ENCOUNTER → 2022-09-30 | Day surgery (SDC) | payer BC ==
[2022-09-26 11:57] LABS: BASOPHILS % 0.5 % (0.0-1.0); EOSINOPHILS # (AUTO) 0.2 (0.0-0.4); EOSINOPHILS % 2.1 % (0.0-6.0); HEMOGLOBIN 13.5 g/dL (12.0-16.0); LYMPHOCYTES # (AUTO) 2.1 (1.0-3.2); LYMPHOCYTES % 28.2 % (18.0-39.1); MEAN CORPUSCULAR HEMOGLOBIN 27.6 pg (28-32); MEAN CORPUSCULAR HGB CONC 32.1 g/dL (31-35); MEAN CORPUSCULAR VOLUME 85.7 fL (81-99); MONOCYTES # (AUTO) 0.4 (0.2-0.8); MONOCYTES % 4.9 % (4.4-11.3); NEUTROPHILS # (AUTO) 4.9 (2.1-6.9); NEUTROPHILS % 63.9 % (38.7-80.0); PLATELET COUNT 392 x10e3/uL (140-360); RED CELL DISTRIBUTION WIDTH 14.4 % (11.7-14.4)
[2022-09-26 12:23] LABS: ALBUMIN 3.3 g/dL (3.5-5.0); ALBUMIN/GLOBULIN RATIO 0.8 (0.8-2.0); ANION GAP 14.6 mmol/L (8-16); CALCIUM 9.2 mg/dL (8.4-10.2); CREATININE, SERUM 0.72 mg/dL (0.57-1.11); POTASSIUM 4.6 mmol/L (3.5-5.1)
[~2022-09-30] MED LIST changes: +DEXAMETHASONE SOD PHOS INJ 4 MG/ML SDV ONE; +HYDROCODON-ACE1 EA12 PO; +LACTATED RINGER'S 1,000 ML ONE; +LIDOCAINE HCL 2% LOCAL INJ 5 ML SDV VIAL INJ ONE; +METOCLOPRAMIDE HCL 10 MG/2ML VIAL ONE; +MIDAZOLAM HCL 2 MG/2 ML VIAL ONE; +ONDANSETRON HCL INJ 2MG/ML 2ML 2 MG/ML VIAL ONE; +POVIDONE IODINE 0.05% 0.05 % ML PO ONE; +PROPOFOL IV EMULSION 10 MG/ML 20 ML VIAL ONE
[2022-09-30 09:32] VITALS: BP 132/79
== END | disposition home or self-care (01) ==
LOC: OR 07:51
PROVIDERS: ATTEND Surgery
DX: K57.32 Diverticulitis of large intestine without perforation or abscess without bleeding (principal); Z98.0 Intestinal bypass and anastomosis status; Z93.3 Colostomy status; E11.9 Type 2 diabetes mellitus without complications; I10 Essential (primary) hypertension; Z01.810 Encounter for preprocedural cardiovascular examination; Z01.812 Encounter for preprocedural laboratory examination; Z79.84 Long term (current) use of oral hypoglycemic drugs
CPT/HCPCS: 36415 ×2; 45378; 80053; 82948; 85025; 93005; J7121; J1100; J2001; J2250; J2405; J2765

== ENCOUNTER 2022-11-06 08:26 | Inpatient (IN) | payer BC ==
[2022-11-04 07:56] LABS: BASOPHILS % 0.3 % (0.0-1.0); EOSINOPHILS # (AUTO) 0.1 (0.0-0.4); EOSINOPHILS % 1.7 % (0.0-6.0); HEMATOCRIT 42.8 % (34.2-44.1); HEMOGLOBIN 13.9 g/dL (12.0-16.0); LYMPHOCYTES # (AUTO) 2.2 (1.0-3.2); LYMPHOCYTES % 31.1 % (18.0-39.1); MEAN CORPUSCULAR HEMOGLOBIN 28.4 pg (28-32); MEAN CORPUSCULAR HGB CONC 32.5 g/dL (31-35); MEAN CORPUSCULAR VOLUME 87.5 fL (81-99); MONOCYTES # (AUTO) 0.4 (0.2-0.8); MONOCYTES % 5.4 % (4.4-11.3); NEUTROPHILS # (AUTO) 4.3 (2.1-6.9); NEUTROPHILS % 61.2 % (38.7-80.0); PLATELET COUNT 358 x10e3/uL (140-360); RED BLOOD COUNT 4.89 x10e6/uL (3.6-5.1); RED CELL DISTRIBUTION WIDTH 14.9 % (11.7-14.4)
[2022-11-04 08:16] LABS: ANION GAP 13.9 mmol/L (8-16); CALCIUM 9.2 mg/dL (8.4-10.2); CREATININE, SERUM 0.69 mg/dL (0.57-1.11); POTASSIUM 3.9 mmol/L (3.5-5.1)
[~2022-11-06] VITALS: Ht 162.6 cm; Wt 117.0 kg
[2022-11-06] VITALS (7 sets, daily range): BP systolic 125–148; BP diastolic 75–84; PULSE 99–115; RESP 16–18; TEMP 98.6–99.5; O2SAT 95–96
[~2022-11-06 08:26] MED LIST changes: -DEXAMETHASONE SOD PHOS INJ 4 MG/ML SDV ONE; +FARXIGA10 MG PO; -LACTATED RINGER'S 1,000 ML ONE; +LEXAPRO10 MG PO; -LIDOCAINE HCL 2% LOCAL INJ 5 ML SDV VIAL INJ ONE; -METOCLOPRAMIDE HCL 10 MG/2ML VIAL ONE; -MIDAZOLAM HCL 2 MG/2 ML VIAL ONE; -ONDANSETRON HCL INJ 2MG/ML 2ML 2 MG/ML VIAL ONE; -POVIDONE IODINE 0.05% 0.05 % ML PO ONE; +PRAVASTATIN SOD20 MG PO; -PROPOFOL IV EMULSION 10 MG/ML 20 ML VIAL ONE; +VITAMIN D250 MCG PO
[2022-11-06] MEDS ORDERED: [UNRECOGNIZED DRUG - REMARK] PO (09:00)
[2022-11-06] MEDS ORDERED: LACTATED RINGER'S 1,000 ML ONE (09:25)
[2022-11-06] MEDS ORDERED: BUPIVACAINE 0.25% 30ML SDV ONE (09:41)
[2022-11-06] MEDS ORDERED: ROPIVACAINE 246.25 MG, EPINEPHRINE HCL 1:1000 1ML 0.5 MG, CLONIDINE HCL 0.08 MG, KETORO... INJ ONE ×5 (10:30)
[2022-11-06] MEDS ORDERED: FENTANYL CITRATE/PF 100MCG/2 ML INJ ONE (11:44)
[2022-11-06] MEDS: FENTANYL CITRATE/PF 100MCG/2 ML INJ ONE ×4 (14:02→14:33)
[2022-11-06] MEDS: SODIUM CHLORIDE 0.9% 250ML IRRIG IR SCH ×3 (15:27→22:07)
[2022-11-06] MEDS: SODIUM CHLORIDE 0.9% 1000ML 1,000 ML IV SCH ×2 (15:27→22:05)
[2022-11-06] MEDS ORDERED: DEXTROSE 50% SYRINGE 50 ML IV PRN (15:30)
[2022-11-06] MEDS ORDERED: NEOSTIGMINE 1 MG/ML 10ML VIAL ONE (15:37)
[2022-11-06] MEDS ORDERED: ROCURONIUM BROMIDE 10 MG/ML 5ML VIAL IV ONE (15:37)
[2022-11-06] MEDS ORDERED: SEVOFLURANE INHAL SOLN 250 ML PEN BTL ONE (15:37)
[2022-11-06] MEDS ORDERED: SUCCINYLCHOLINE CHLORIDE 20 MG/ML 10ML VIAL ONE (15:37)
[2022-11-06] MEDS ORDERED: LIDOCAINE HCL 2% LOCAL INJ 5 ML SDV VIAL INJ ONE (15:37)
[2022-11-06] MEDS ORDERED: GLYCOPYRROLATE INJ 0.2 MG/ML VIAL ONE (15:37)
[2022-11-06] MEDS ORDERED: ONDANSETRON HCL INJ 2MG/ML 2ML 2 MG/ML VIAL ONE (15:37)
[2022-11-06] MEDS ORDERED: METOCLOPRAMIDE HCL 10 MG/2ML VIAL ONE (15:37)
[2022-11-06] MEDS ORDERED: PROPOFOL IV EMULSION 10 MG/ML 20 ML VIAL ONE (15:37)
[2022-11-06] MEDS ORDERED: POVIDONE IODINE 0.05% 0.05 % ML PO ONE (15:37)
[2022-11-06] MEDS: INSULIN REGULAR, HUMAN 100 UNIT/1 ML SQ SCH (17:55)
[2022-11-06] MEDS ORDERED: ACETAMINOPHEN 1000 MG/100 ML IV PRN (18:00)
[2022-11-06] MEDS: ONDANSETRON HCL INJ 2MG/ML 2ML 2 MG/ML VIAL IV PRN (18:28)
[2022-11-06] MEDS: HYDROMORPHONE 1MG/1ML INJ IV PRN ×2 (18:29→22:04)
[2022-11-07] VITALS (9 sets, daily range): BP systolic 117–158; BP diastolic 74–90; PULSE 87–102; RESP 17–18; TEMP 97–99.5; O2SAT 95–97
[2022-11-07] MEDS: SODIUM CHLORIDE 0.9% 250ML IRRIG IR SCH ×6 (01:58→21:54)
[2022-11-07] MEDS: HYDROMORPHONE 1MG/1ML INJ IV PRN ×5 (03:26→20:21)
[2022-11-07] MEDS: ONDANSETRON HCL INJ 2MG/ML 2ML 2 MG/ML VIAL IV PRN ×4 (03:26→20:20)
[2022-11-07 04:56] LABS: BASOPHILS % 0.1 % (0.0-1.0); EOSINOPHILS % 0.1 % (0.0-6.0); HEMOGLOBIN 12.9 g/dL (12.0-16.0); LYMPHOCYTES # (AUTO) 1.4 (1.0-3.2); LYMPHOCYTES % 15.3 % (18.0-39.1); MEAN CORPUSCULAR HEMOGLOBIN 28.9 pg (28-32); MEAN CORPUSCULAR HGB CONC 33.1 g/dL (31-35); MEAN CORPUSCULAR VOLUME 87.2 fL (81-99); MONOCYTES # (AUTO) 0.7 (0.2-0.8); MONOCYTES % 7.5 % (4.4-11.3); NEUTROPHILS # (AUTO) 6.9 (2.1-6.9); NEUTROPHILS % 76.8 % (38.7-80.0); PLATELET COUNT 316 x10e3/uL (140-360); RED BLOOD COUNT 4.47 x10e6/uL (3.6-5.1); RED CELL DISTRIBUTION WIDTH 14.9 % (11.7-14.4)
[2022-11-07 05:23] LABS: ANION GAP 12.8 mmol/L (8-16); CALCIUM 8.2 mg/dL (8.4-10.2); CREATININE, SERUM 0.69 mg/dL (0.57-1.11); POTASSIUM 3.8 mmol/L (3.5-5.1)
[2022-11-07] MEDS: INSULIN REGULAR, HUMAN 100 UNIT/1 ML SQ SCH ×4 (05:35→18:00)
[2022-11-07] MEDS: SODIUM CHLORIDE 0.9% 1000ML 1,000 ML IV SCH ×3 (05:35→20:16)
[2022-11-08] VITALS (9 sets, daily range): BP systolic 125–153; BP diastolic 77–87; PULSE 84–103; RESP 16–19; TEMP 97.4–99.9; O2SAT 95–98
[2022-11-08] MEDS: HYDROMORPHONE 1MG/1ML INJ IV PRN ×6 (00:03→21:59)
[2022-11-08] MEDS: ONDANSETRON HCL INJ 2MG/ML 2ML 2 MG/ML VIAL IV PRN ×6 (00:04→21:59)
[2022-11-08] MEDS: SODIUM CHLORIDE 0.9% 250ML IRRIG IR SCH ×6 (02:00→21:53)
[2022-11-08] MEDS: SODIUM CHLORIDE 0.9% 1000ML 1,000 ML IV SCH ×3 (05:14→16:57)
[2022-11-08] MEDS: INSULIN REGULAR, HUMAN 100 UNIT/1 ML SQ SCH ×4 (06:00→18:00)
[2022-11-08] MEDS ORDERED: BISACODYL 10 MG SUPP PR ONE (09:30)
[2022-11-08] MEDS ORDERED: HYDROMORPHONE 1MG/1ML INJ IV PRN (17:00)
[2022-11-08] MEDS ORDERED: Morphine 4mg INJECTION 4 MG/ML INJ IV PRN (20:00)
[2022-11-08] MEDS ORDERED: ALBUTEROL/IPRATROPIUM 3 ML NEB NEB PRN (20:00)
[2022-11-08] MEDS ORDERED: HYDROCODONE/APAP 7.5MG-325MG 1 EA TAB PO PRN (20:00)
[2022-11-08] MEDS: BISACODYL 10 MG SUPP PR SCH (21:00)
[2022-11-09] VITALS (10 sets, daily range): BP systolic 118–150; BP diastolic 58–85; PULSE 80–96; RESP 17–20; TEMP 97.6–99.1; O2SAT 95–100
[2022-11-09] MEDS: SODIUM CHLORIDE 0.9% 1000ML 1,000 ML IV SCH ×3 (00:42→22:03)
[2022-11-09] MEDS: SODIUM CHLORIDE 0.9% 250ML IRRIG IR SCH ×6 (02:52→22:00)
[2022-11-09] MEDS: HYDROMORPHONE 1MG/1ML INJ IV PRN ×5 (02:55→22:00)
[2022-11-09] MEDS: INSULIN REGULAR, HUMAN 100 UNIT/1 ML SQ SCH ×4 (06:00→17:52)
[2022-11-09] MEDS: ONDANSETRON HCL INJ 2MG/ML 2ML 2 MG/ML VIAL IV PRN ×4 (07:50→22:00)
[2022-11-09] MEDS: BISACODYL 10 MG SUPP PR SCH ×2 (07:55→22:03)
[2022-11-10] VITALS (10 sets, daily range): BP systolic 113–173; BP diastolic 61–90; PULSE 72–90; RESP 16–20; TEMP 97.8–98.8; O2SAT 95–100
[2022-11-10] MEDS: SODIUM CHLORIDE 0.9% 250ML IRRIG IR SCH ×3 (00:45→10:00)
[2022-11-10] MEDS: ONDANSETRON HCL INJ 2MG/ML 2ML 2 MG/ML VIAL IV PRN ×4 (04:18→20:54)
[2022-11-10] MEDS: HYDROMORPHONE 1MG/1ML INJ IV PRN ×4 (04:19→20:55)
[2022-11-10] MEDS: INSULIN REGULAR, HUMAN 100 UNIT/1 ML SQ SCH ×4 (06:00→17:01)
[2022-11-10] MEDS: SODIUM CHLORIDE 0.9% 1000ML 1,000 ML IV SCH ×2 (06:39→17:32)
[2022-11-10] MEDS: BISACODYL 10 MG SUPP PR SCH (12:25)
[2022-11-11] VITALS (9 sets, daily range): BP systolic 140–167; BP diastolic 61–90; PULSE 66–83; RESP 15–20; TEMP 97.8–98.1; O2SAT 96–100
[2022-11-11] MEDS: HYDROMORPHONE 1MG/1ML INJ IV PRN ×2 (01:32→08:17)
[2022-11-11] MEDS: SODIUM CHLORIDE 0.9% 1000ML 1,000 ML IV SCH ×2 (01:33→20:12)
[2022-11-11] MEDS: ONDANSETRON HCL INJ 2MG/ML 2ML 2 MG/ML VIAL IV PRN (01:33)
[2022-11-11] MEDS: INSULIN REGULAR, HUMAN 100 UNIT/1 ML SQ SCH ×4 (04:41→16:16)
[2022-11-11] MEDS: HYDROCODONE/APAP 7.5MG-325MG 1 EA TAB PO PRN ×2 (15:56→21:33)
[2022-11-12] VITALS (9 sets, daily range): BP systolic 145–158; BP diastolic 70–87; PULSE 69–89; RESP 17–21; TEMP 97.9–98.6; O2SAT 97–99
[2022-11-12] MEDS: INSULIN REGULAR, HUMAN 100 UNIT/1 ML SQ SCH ×5 (00:45→20:54)
[2022-11-12] MEDS: ONDANSETRON HCL INJ 2MG/ML 2ML 2 MG/ML VIAL IV PRN ×3 (01:25→10:28)
[2022-11-12] MEDS: HYDROCODONE/APAP 7.5MG-325MG 1 EA TAB PO PRN ×5 (09:27→21:41)
[2022-11-12] MEDS: SODIUM CHLORIDE 0.9% 1000ML 1,000 ML IV SCH ×2 (09:32→15:44)
[2022-11-13] VITALS (9 sets, daily range): BP systolic 138–168; BP diastolic 78–99; PULSE 69–80; RESP 18–20; TEMP 97.4–98.1; O2SAT 96–100
[2022-11-13] MEDS: SODIUM CHLORIDE 0.9% 1000ML 1,000 ML IV SCH ×2 (04:23→23:35)
[2022-11-13] MEDS: INSULIN REGULAR, HUMAN 100 UNIT/1 ML SQ SCH ×4 (08:30→21:00)
[2022-11-13] MEDS: HYDROCODONE/APAP 7.5MG-325MG 1 EA TAB PO PRN (10:13)
[2022-11-13] MEDS: ONDANSETRON HCL INJ 2MG/ML 2ML 2 MG/ML VIAL IV PRN ×2 (12:48→17:08)
[2022-11-13] MEDS: HYDROMORPHONE 1MG/1ML INJ IV PRN ×3 (12:54→21:01)
[2022-11-13] MEDS ORDERED: BISACODYL 10 MG SUPP PR ONE (14:00)
[2022-11-13 14:21] LABS: BASOPHILS % 0.1 % (0.0-1.0); EOSINOPHILS # (AUTO) 0.1 (0.0-0.4); EOSINOPHILS % 1.6 % (0.0-6.0); HEMOGLOBIN 11.5 g/dL (12.0-16.0); LYMPHOCYTES # (AUTO) 1.3 (1.0-3.2); MEAN CORPUSCULAR HEMOGLOBIN 29.1 pg (28-32); MEAN CORPUSCULAR HGB CONC 33.8 g/dL (31-35); MEAN CORPUSCULAR VOLUME 86.1 fL (81-99); MONOCYTES # (AUTO) 0.5 (0.2-0.8); MONOCYTES % 7.1 % (4.4-11.3); NEUTROPHILS # (AUTO) 4.9 (2.1-6.9); NEUTROPHILS % 71.9 % (38.7-80.0); PLATELET COUNT 371 x10e3/uL (140-360); RED BLOOD COUNT 3.95 x10e6/uL (3.6-5.1); RED CELL DISTRIBUTION WIDTH 14.4 % (11.7-14.4)
[2022-11-13 14:37] LABS: ALANINE AMINOTRANSFERASE 14 IU/L (0-55); ALBUMIN 2.5 g/dL (3.5-5.0); ALBUMIN/GLOBULIN RATIO 0.7 (0.8-2.0); ALKALINE PHOSPHATASE 57 IU/L (40-150); ANION GAP 13.1 mmol/L (8-16); BLOOD UREA NITROGEN < 5 mg/dL (7-26); CALCIUM 8.3 mg/dL (8.4-10.2); CARBON DIOXIDE 32 mmol/L (22-29); CHLORIDE 99 mmol/L (98-107); CREATININE, SERUM 0.62 mg/dL (0.57-1.11); GLUCOSE 199 mg/dL (74-118); POTASSIUM 3.1 mmol/L (3.5-5.1); SODIUM 141 mmol/L (136-145)
[2022-11-13 14:40] LABS: BUN/CREATININE RATIO 8 (6-25)
[2022-11-13] MEDS: BALSAM PERU/CASTOR OIL 60 GM OINT...G. TP SCH (21:04)
[2022-11-14] VITALS (7 sets, daily range): BP systolic 140–159; BP diastolic 71–93; PULSE 71–82; RESP 18–21; TEMP 98–98.6; O2SAT 97–100
[2022-11-14] MEDS: HYDROMORPHONE 1MG/1ML INJ IV PRN ×4 (02:35→22:51)
[2022-11-14] MEDS: ONDANSETRON HCL INJ 2MG/ML 2ML 2 MG/ML VIAL IV PRN ×4 (02:35→22:50)
[2022-11-14] MEDS: INSULIN REGULAR, HUMAN 100 UNIT/1 ML SQ SCH ×4 (07:30→20:15)
[2022-11-14] MEDS ORDERED: BALSAM PERU/CASTOR OIL 60 GM OINT...G. TP SCH (09:00)
[2022-11-14] MEDS: SODIUM CHLORIDE 0.9% 1000ML 1,000 ML IV SCH ×2 (10:03→18:09)
[2022-11-14] MEDS ORDERED: BISACODYL 10 MG SUPP PR ONE (15:00)
[2022-11-14] MEDS: BALSAM PERU/CASTOR OIL 60 GM OINT...G. TP SCH (20:16)
[2022-11-15] VITALS: BP 145/75; PULSE 79; RESP 18; TEMP 98; O2SAT 98
[2022-11-15 00:13] VITALS: BP 145/75; PULSE 79; RESP 18; TEMP 98; O2SAT 98
[2022-11-15 04:00] VITALS: BP 161/93; PULSE 86; RESP 18; TEMP 98.6; O2SAT 97
[2022-11-15] MEDS: SODIUM CHLORIDE 0.9% 1000ML 1,000 ML IV SCH (04:11)
[2022-11-15 08:58] VITALS: BP 140/88; PULSE 64; RESP 19; TEMP 98.4; O2SAT 98
[2022-11-15] MEDS: INSULIN REGULAR, HUMAN 100 UNIT/1 ML SQ SCH ×3 (09:15→16:30)
[2022-11-15] MEDS: HYDROCODONE/APAP 7.5MG-325MG 1 EA TAB PO PRN (10:08)
[2022-11-15 12:55] VITALS: BP 186/96; PULSE 71; RESP 21; TEMP 98.1; O2SAT 100
[2022-11-15 20:00] VITALS: BP 144/92; PULSE 74; RESP 18; TEMP 97.5; O2SAT 97
== END 2022-11-15 20:51 | disposition home or self-care (01) | DRG 330 ==
LOC: OR 08:26 → PACU V 13:50 → MED/SURG 14:52
PROVIDERS: ADMIT Surgery; ATTEND Surgery
PROC: 0DTJ0ZZ Resection of Appendix, Open Approach (ICD-10-PCS; 2022-11-06)
PROC: 0DN80ZZ Release Small Intestine, Open Approach (ICD-10-PCS; 2022-11-06)
PROC: 0WQF0ZZ Repair Abdominal Wall, Open Approach (ICD-10-PCS; 2022-11-06)
PROC: 0DBB0ZZ Excision of Ileum, Open Approach (ICD-10-PCS; principal; 2022-11-06 10:51)
PROC: 02HV33Z Insertion of Infusion Device into Superior Vena Cava, Percutaneous Approach (ICD-10-PCS; 2022-11-10)
DX: Z43.2 Encounter for attention to ileostomy (principal); K43.6 Other and unspecified ventral hernia with obstruction, without gangrene; K91.30 Postprocedural intestinal obstruction, unspecified as to partial versus complete; K66.0 Peritoneal adhesions (postprocedural) (postinfection); E66.01 Morbid (severe) obesity due to excess calories; I10 Essential (primary) hypertension; R11.10 Vomiting, unspecified
CPT/HCPCS: 0223U; 36415; 36569; 71045; 74022; 80048; 80053; 82948; 85025; 88304; 94799; 96372; 99252; J0171; J0330; J0694; J0696; J1170; J1885; J2001; J2405; J2710; J2765; J2795; J7030